=== PATIENT | female | born 1950 | race African-American/Black ===

== ENCOUNTER 2016-10-28 08:57 | Emergency (ER) | payer OTHER ==
[~2016-10-28] VITALS: Ht 165.1 cm; Wt 65.0 kg
[~2016-10-28 08:57] MED LIST: ALLO300T2 PO
[2016-10-28 10:57] VITALS: BP 121/69
== END 2016-10-28 11:17 | disposition home or self-care (01) ==
LOC: ER 11:10
DX: Z48.01 Encounter for change or removal of surgical wound dressing (principal); F41.9 Anxiety disorder, unspecified; M19.90 Unspecified osteoarthritis, unspecified site; I10 Essential (primary) hypertension; Z87.442 Personal history of urinary calculi; Z88.8 Allergy status to other drugs, medicaments and biological substances
CPT/HCPCS: 99282; X7700; Z7610

== ENCOUNTER 2016-11-26 13:51 | Emergency (ER) | payer OTHER ==
[~2016-11-26] VITALS: Ht 172.7 cm; Wt 68.0 kg
[2016-11-26] MEDS ORDERED: LIDOCAINE HCL 1% 20ML VIAL (Pyxis) INJ INFIL ONE (14:45)
[2016-11-26] MEDS ORDERED: ACETAMINOPHEN WITH CODEINE 300/30MG TABLET PO ONE (14:45)
[2016-11-26] MEDS ORDERED: CEFTRIAXONE SODIUM 1 G/VIAL IM ONE (14:45)
[2016-11-26 15:18] VITALS: BP 137/68
== END 2016-11-26 16:12 | disposition home or self-care (01) ==
LOC: ER 16:02
DX: S71.101A Unspecified open wound, right thigh, initial encounter (principal); L03.115 Cellulitis of right lower limb; I10 Essential (primary) hypertension; M19.90 Unspecified osteoarthritis, unspecified site; Z88.1 Allergy status to other antibiotic agents; W57.XXXA Bitten or stung by nonvenomous insect and other nonvenomous arthropods, initial encounter; Y93.89 Activity, other specified; Y92.89 Other specified places as the place of occurrence of the external cause; Y99.8 Other external cause status
CPT/HCPCS: 87070; 87077; 87186; 87205; 96372; 99284; J0696; J3490; X7700; Z7610; 99283

== ENCOUNTER 2017-03-31 10:58 | Emergency (ER) | payer MEDICARE, OTHER ==
[~2017-03-31] VITALS: Ht 162.6 cm; Wt 59.0 kg
[2017-03-31] MEDS ORDERED: KETOROLAC 30MG/ML VIAL IV STA (14:48)
[2017-03-31 15:08] LABS: BASOPHILS % 0.3 % (0.0-2.0); EOSINOPHILS % 0.5 % (0.0-5.0); HEMATOCRIT. 34.4 % (36.0-48.0); HEMOGLOBIN. 11.3 g/dL (12.0-16.0); LYMPHOCYTES % 29.9 % (20.0-50.0); MEAN CORPUSCULAR HEMOGLOBIN 28.1 pg (28.0-32.0); MEAN CORPUSCULAR VOLUME 85.5 fL (81.0-99.0); MEAN PLATELET VOLUME 9.5 fl (7.4-10.4); MONOCYTES % 7.3 % (2.0-8.0); PLATELET 171 x1000/uL (130-400); RED BLOOD CELL COUNT 4.02 mill/uL (4.2-5.4); RED CELL DISTRIBUTION WIDTH 15.6 % (11.6-14.6)
[2017-03-31 15:11] LABS: CHLORIDE 105 mEq/L (98-107)
[2017-03-31 15:14] LABS: CARBON DIOXIDE 28 mEq/L (21-32)
[2017-03-31 17:32] LABS: CLARITY URINE CLEAR (CLEAR); COLOR URINE YELLOW (YELLOW); GLUCOSE URINE TRACE (NEGATIVE); KETONES URINE NEGATIVE (NEGATIVE); LEUKOCYTE ESTERASE URINE 3+ (NEGATIVE); NITRITE URINE NEGATIVE (NEGATIVE); OCCULT BLOOD URINE NEGATIVE (NEGATIVE); PH URINE 7.5 (4.5-8.0); PROTEIN URINE NEGATIVE (NEGATIVE); UROBILINOGEN URINE 0.2 E.U./dL (0.2-1.0)
[2017-03-31 19:45] VITALS: BP 141/74
== END 2017-03-31 19:50 | disposition home or self-care (01) ==
LOC: ER 11:46
DX: N39.0 Urinary tract infection, site not specified (principal); N20.0 Calculus of kidney; M19.90 Unspecified osteoarthritis, unspecified site; I10 Essential (primary) hypertension; Z88.1 Allergy status to other antibiotic agents
CPT/HCPCS: 36415; 76770; 80053; 81001; 85025; 96374; 99285; J1885

== ENCOUNTER 2017-08-13 20:13 | Inpatient (IN) | payer MEDICARE, MEDICAID ==
[~2017-08-13] VITALS: Ht 170.2 cm; Wt 61.7 kg
[2017-08-13 21:01] LABS: BASOPHILS % 0.3 % (0.0-2.0); EOSINOPHILS % 0.2 % (0.0-5.0); HEMOGLOBIN. 12.2 g/dL (12.0-16.0); LYMPHOCYTES % 20.4 % (20.0-50.0); MEAN CORPUSCULAR HEMOGLOBIN 27.6 pg (28.0-32.0); MEAN CORPUSCULAR VOLUME 83.8 fL (81.0-99.0); MEAN PLATELET VOLUME 9.7 fl (7.4-10.4); MONOCYTES % 5.4 % (2.0-8.0); NEUTROPHILS % 73.7 % (40.0-76.0); PLATELET 161 x1000/uL (130-400); RED BLOOD CELL COUNT 4.42 mill/uL (4.2-5.4)
[2017-08-13 21:07] LABS: INR 1.1; PROTHROMBIN TIME 11.4 sec (9.4-11.6)
[2017-08-13 21:09] LABS: CHLORIDE 108 mEq/L (98-107)
[2017-08-13 21:13] LABS: CLARITY URINE CLEAR (CLEAR); COLOR URINE YELLOW (YELLOW); KETONES URINE NEGATIVE (NEGATIVE); LEUKOCYTE ESTERASE URINE 3+ (NEGATIVE); NITRITE URINE NEGATIVE (NEGATIVE); OCCULT BLOOD URINE NEGATIVE (NEGATIVE); PROTEIN URINE TRACE (NEGATIVE); SPECIFIC GRAVITY URINE 1.012 (1.005-1.030); UROBILINOGEN URINE 0.2 E.U./dL (0.2-1.0)
[2017-08-13] MEDS ORDERED: ONDANSETRON HCL 4MG/2ML INJ IV SCH (21:30)
[2017-08-13] MEDS ORDERED: SODIUM CHLORIDE 0.9% 1,000 ML IV SCH (21:30)
[2017-08-13] MEDS ORDERED: KETOROLAC 15MG/ML VIAL IV SCH (21:30)
[2017-08-13] MEDS ORDERED: CEFTRIAXONE 1 G PREMIX 50 ML IV SCH (22:30)
[2017-08-14] MEDS ORDERED: ONDANSETRON HCL 4MG/2ML INJ IV ONE
[2017-08-14] MEDS ORDERED: MORPHINE SULFATE 4 MG/ML CPJ (NOT FOR IM USE) IV ONE (01:15)
[2017-08-14] MEDS ORDERED: METOCLOPRAMIDE HCL 10MG/2ML VIAL IV ONE (01:30)
[2017-08-14] MEDS ORDERED: IOHEXOL-300 100 ML BOTTLE ONE (03:37)
[2017-08-14] MEDS ORDERED: HYDRALAZINE 20MG/ML VIAL IV SCH ×2 (05:21→12:00)
[2017-08-14 10:10] LABS: *AMPHETAMINES SCREEN URINE NEGATIVE (NEGATIVE); *BARBITURATES SCREEN URINE NEGATIVE (NEGATIVE)
[2017-08-14 10:15] LABS: *BENZODIAZEPINES SCREEN URINE NEGATIVE (NEGATIVE); *COCAINE SCREEN URINE PRESUMTIVE POSITIVE (NEGATIVE); CANNABINOID URINE SCREEN NEGATIVE (NEGATIVE); METHADONE URINE SCREEN NEGATIVE (NEGATIVE); OPIATES URINE SCREEN NEGATIVE (NEGATIVE); PHENCYCLIDINE URINE SCREEN NEGATIVE (NEGATIVE)
[2017-08-14] MEDS ORDERED: HYDRALAZINE 10 MG in SODIUM CHLORIDE 0.9% 49.5 ML IV NR (10:30)
[2017-08-14] MEDS ORDERED: CLONIDINE 0.2MG TABLET PO PRN (11:15)
[2017-08-14] MEDS ORDERED: HYDROCODONE/ACETAMINOPHEN 10/325MG TABLET PO PRN (11:15)
[2017-08-14] MEDS ORDERED: DIPHENHYDRAMINE 50MG/ML VIAL IV PRN (11:15)
[2017-08-14] MEDS ORDERED: ACETAMINOPHEN 325MG TABLET PO PRN (11:15)
[2017-08-14] MEDS ORDERED: LORAZEPAM 2MG/ML CPJ IV PRN (11:15)
[2017-08-14] MEDS: NIFEDIPINE XL 60MG TAB PO SCH (11:28)
[2017-08-14] MEDS: ONDANSETRON HCL 4MG/2ML INJ IV PRN ×2 (11:48→15:48)
[2017-08-14 12:00] VITALS: BP 208/99
[2017-08-14] MEDS ORDERED: FOLIC ACID 1 MG, THIAMINE HCL 100 MG in SODIUM CHLORIDE 0.9% 1,000 ML IV SCH (12:30)
[2017-08-14] MEDS: MORPHINE SULFATE 4 MG/ML CPJ (NOT FOR IM USE) IV PRN (12:44)
[2017-08-14] MEDS: LEVOFLOXACIN 500MG PREMIX 100 ML IV SCH (13:56)
[2017-08-14] MEDS: DEXT 5%/0.45% NACL KCL 20MEQ/L 1,000 ML IV SCH (13:58)
[2017-08-14 15:34] VITALS: BP 208/99
[2017-08-14 16:00] VITALS: BP 173/84
[2017-08-14] MEDS ORDERED: HYDRALAZINE 10 MG in SODIUM CHLORIDE 0.9% 49.5 ML IV SCH (18:00)
[2017-08-14] MEDS: HYDRALAZINE 10 MG in SODIUM CHLORIDE 0.9% 50 ML IV SCH (18:04)
[2017-08-14 20:00] VITALS: BP 183/94
[2017-08-15] VITALS: BP 135/81
[2017-08-15] MEDS: DEXT 5%/0.45% NACL KCL 20MEQ/L 1,000 ML IV SCH ×3 (03:19→20:34)
[2017-08-15] MEDS: HYDRALAZINE 10 MG in SODIUM CHLORIDE 0.9% 50 ML IV SCH ×2 (03:20→06:00)
[2017-08-15 04:00] VITALS: BP 95/40
[2017-08-15 08:00] VITALS: BP 90/38
[2017-08-15] MEDS: NIFEDIPINE XL 60MG TAB PO SCH (08:47)
[2017-08-15 12:00] VITALS: BP 95/43
[2017-08-15] MEDS: LEVOFLOXACIN 500MG PREMIX 100 ML IV SCH (14:43)
[2017-08-15 16:00] VITALS: BP 104/50
[2017-08-15] MEDS: MORPHINE SULFATE 4 MG/ML CPJ (NOT FOR IM USE) IV PRN ×2 (17:12→21:12)
[2017-08-15] MEDS ORDERED: CLONIDINE 0.1MG TABLET PO PRN (17:15)
[2017-08-15 20:00] VITALS: BP 107/51
[2017-08-16] VITALS: BP 123/57
[2017-08-16] MEDS: MORPHINE SULFATE 4 MG/ML CPJ (NOT FOR IM USE) IV PRN (02:41)
[2017-08-16 04:00] VITALS: BP_SYST 131; BP_SYST 139; BP_DIAS 57; BP_DIAS 61
[2017-08-16 08:00] VITALS: BP 131/51
[2017-08-16] MEDS: NIFEDIPINE XL 60MG TAB PO SCH (09:00)
[2017-08-16] MEDS ORDERED: DIATR MEGLU/DIATRIZOATE SOLN 120ML ONE (11:17)
[2017-08-16] MEDS ORDERED: DIATR MEGLU/DIATRIZOATE SOLN 30ML ONE (11:18)
[2017-08-16 12:00] VITALS: BP 149/59
[2017-08-16] MEDS: DEXT 5%/0.45% NACL KCL 20MEQ/L 1,000 ML IV SCH (13:09)
[2017-08-16 16:00] VITALS: BP 127/67
[2017-08-16] MEDS ORDERED: MORPHINE SULFATE 2 MG/ML CPJ (NOT FOR IM USE) IV PRN (17:30)
[2017-08-16 20:00] VITALS: BP 129/51
[2017-08-17 08:00] VITALS: BP 167/67
[2017-08-17] MEDS: NIFEDIPINE XL 60MG TAB PO SCH (09:27)
[2017-08-17 12:00] VITALS: BP 170/61
[2017-08-17 15:20] VITALS: BP 170/61
[2017-08-18] MEDS ORDERED: NIFE90TA2 PO (17:22)
== END 2017-08-17 16:25 | disposition home or self-care (01) | DRG 463 ==
LOC: ER 20:32 → 6EST 08-14 02:18 → ENRESERV 08-14 08:17
PROVIDERS: ADMIT Internal Medicine; ATTEND Internal Medicine
DX: N39.0 Urinary tract infection, site not specified (principal); N17.9 Acute kidney failure, unspecified; K74.60 Unspecified cirrhosis of liver; I10 Essential (primary) hypertension; F14.10 Cocaine abuse, uncomplicated; J45.909 Unspecified asthma, uncomplicated; M19.90 Unspecified osteoarthritis, unspecified site; R74.0 Nonspecific elevation of levels of transaminase and lactic acid dehydrogenase [LDH]; Z60.2 Problems related to living alone; E87.6 Hypokalemia; E80.6 Other disorders of bilirubin metabolism; Z98.891 History of uterine scar from previous surgery; Z87.442 Personal history of urinary calculi; Z79.899 Other long term (current) drug therapy; Z88.8 Allergy status to other drugs, medicaments and biological substances
CPT/HCPCS: 36415; 74177; 74270; 76700; 80305; 81001; 82962; 96361; 96365; 96366; 96375; 96376; 99285; G0482; J0360; J0696; J1885; J1956; J2060; J2270; J2405; J2765; J3411; J3490; J7030; Q9963; Q9967

== ENCOUNTER 2018-06-22 17:19 | Emergency (ER) | payer MEDICARE, MEDICAID ==
[~2018-06-22] VITALS: Ht 170.2 cm; Wt 82.0 kg
[~2018-06-22 17:19] MED LIST changes: -ALLO300T2 PO; +NIFE90TA2 PO
[2018-06-22] MEDS ORDERED: CYCLOBENZAPRINE 10MG TABLET PO ONE (21:00)
[2018-06-22 21:56] LABS: CHLORIDE 111 mEq/L (98-107)
[2018-06-22 22:35] VITALS: BP 185/101
== END 2018-06-22 23:04 | disposition home or self-care (01) ==
LOC: ER 17:33
DX: R25.2 Cramp and spasm (principal); M79.672 Pain in left foot; M79.671 Pain in right foot; M79.642 Pain in left hand; M79.641 Pain in right hand; F32.9 Major depressive disorder, single episode, unspecified; I10 Essential (primary) hypertension; F41.9 Anxiety disorder, unspecified; Z88.1 Allergy status to other antibiotic agents; Z79.899 Other long term (current) drug therapy
CPT/HCPCS: 36415; 80048; 99283

== ENCOUNTER 2019-04-08 20:26 | Emergency (ER) | payer MEDICARE, MEDICAID ==
[~2019-04-08] VITALS: Ht 162.6 cm; Wt 62.0 kg
[2019-04-08] MEDS ORDERED: HYDROCODONE/ACETAMINOPHEN 10/325MG TABLET PO ONE (23:15)
[2019-04-09] MEDS ORDERED: LORAZEPAM 1MG TABLET PO ONE (09:15)
[2019-04-09] MEDS ORDERED: IBUPROFEN 600MG TABLET PO ONE (09:15)
[2019-04-09 13:23] VITALS: BP 154/74
== END 2019-04-09 13:45 | disposition short-term general hospital (02) ==
LOC: ER 22:26 → CANBEDREQ 04-09 10:53 → ER 04-09 13:45
DX: M79.605 Pain in left leg (principal); Z87.81 Personal history of (healed) traumatic fracture; Z98.890 Other specified postprocedural states
CPT/HCPCS: 73552; 73562; 73590; 99285

== ENCOUNTER 2020-02-28 15:27 | Emergency (ER) | payer MEDICARE, MEDICAID ==
[~2020-02-28] VITALS: Ht 170.2 cm; Wt 59.0 kg
[2020-02-28] MEDS ORDERED: FAMOTIDINE 20MG/2ML VIAL IV STA (16:12)
[2020-02-28] MEDS ORDERED: ONDANSETRON HCL 4MG/2ML INJ IV STA (16:12)
[2020-02-28 16:25] LABS: BASOPHILS % 0.2 % (0.0-2.0); EOSINOPHILS % 0.2 % (0.0-5.0); HEMATOCRIT. 43.4 % (36.0-48.0); HEMOGLOBIN. 14.3 g/dL (12.0-16.0); LYMPHOCYTES % 20.3 % (20.0-50.0); MEAN CORPUSCULAR HEMOGLOBIN 27.4 pg (28.0-32.0); MEAN CORPUSCULAR VOLUME 83.1 fL (81.0-99.0); MEAN PLATELET VOLUME 10.5 fl (7.4-10.4); MONOCYTES % 8.5 % (2.0-8.0); NEUTROPHILS % 70.8 % (40.0-76.0); PLATELET 192 x1000/uL (130-400); RED BLOOD CELL COUNT 5.22 mill/uL (4.2-5.4); RED CELL DISTRIBUTION WIDTH 14.3 % (11.6-14.6)
[2020-02-28 16:31] LABS: CHLORIDE 99 mEq/L (98-107)
[2020-02-28 16:34] LABS: INR 1.1
[2020-02-28 16:35] LABS: ETHANOL BLOOD < 10 mg/dL
[2020-02-28] MEDS ORDERED: MAGNESIUM/ALUMINUM HYDROXIDE/SIMETHICONE 30ML UDC PO ONE (20:15)
[2020-02-28 21:18] LABS: CLARITY URINE TURBID (CLEAR); COLOR URINE YELLOW (YELLOW); KETONES URINE NEGATIVE (NEGATIVE); LEUKOCYTE ESTERASE URINE 3+ (NEGATIVE); NITRITE URINE NEGATIVE (NEGATIVE); OCCULT BLOOD URINE 2+ (NEGATIVE); PH URINE 6.5 (4.5-8.0); PROTEIN URINE 2+ (NEGATIVE)
[2020-02-28 21:30] LABS: *AMPHETAMINES SCREEN URINE NEGATIVE (NEGATIVE); *BARBITURATES SCREEN URINE NEGATIVE (NEGATIVE); *BENZODIAZEPINES SCREEN URINE NEGATIVE (NEGATIVE); *COCAINE SCREEN URINE PRESUMTIVE POSITIVE (NEGATIVE); CANNABINOID URINE SCREEN NEGATIVE (NEGATIVE); METHADONE URINE SCREEN NEGATIVE (NEGATIVE); OPIATES URINE SCREEN NEGATIVE (NEGATIVE); PHENCYCLIDINE URINE SCREEN NEGATIVE (NEGATIVE)
[2020-02-28] MEDS ORDERED: MORPHINE SULFATE 4 MG/ML CPJ (NOT FOR IM USE) IV NR (21:30)
[2020-02-28] MEDS ORDERED: LEVOFLOXACIN 250MG TABLET PO ONE (21:30)
[2020-02-28] MEDS ORDERED: AMOXICILLIN/POTASSIUM CLAVULANATE 875/125MG TAB PO ONE (21:30)
[2020-02-28 22:18] VITALS: BP 172/92
[2020-03-15] MEDS ORDERED: MELO-104 MT (14:53)
== END 2020-02-28 23:07 | disposition home or self-care (01) ==
LOC: ER 15:27
DX: N39.0 Urinary tract infection, site not specified (principal); N20.0 Calculus of kidney; E87.6 Hypokalemia; I12.9 Hypertensive chronic kidney disease with stage 1 through stage 4 chronic kidney disease, or unspecified chronic kidney disease; N18.9 Chronic kidney disease, unspecified; F32.9 Major depressive disorder, single episode, unspecified; M19.90 Unspecified osteoarthritis, unspecified site; F41.9 Anxiety disorder, unspecified; Z86.19 Personal history of other infectious and parasitic diseases; Z88.3 Allergy status to other anti-infective agents
CPT/HCPCS: 36415; 71045; 74018; 76705; 80053; 80305; 80320; 81003; 83690; 84484; 85025; 85610; 87077; 87086; 87186; 93005; 96374; 96375; 99285; J2405; J3490; G0480

== ENCOUNTER 2020-09-01 12:09 | Emergency (ER) | payer MEDICARE, MEDICAID ==
[~2020-09-01] VITALS: Ht 167.6 cm; Wt 50.0 kg
[~2020-09-01 12:09] MED LIST changes: +MELO-104 MT
[2020-09-01] MEDS ORDERED: ONDANSETRON 4MG ODT PO STA (12:24)
[2020-09-01] MEDS ORDERED: ACETAMINOPHEN 325MG TABLET PO STA (12:24)
[2020-09-01] MEDS ORDERED: MAGNESIUM/ALUMINUM HYDROXIDE/SIMETHICONE 30ML UDC PO STA (12:24)
[2020-09-01] MEDS ORDERED: FAMOTIDINE 20MG TABLET PO ONE (12:30)
[2020-09-01 13:12] LABS: BASOPHILS % 0.5 % (0.0-2.0); EOSINOPHILS % 1.3 % (0.0-5.0); HEMATOCRIT. 33.7 % (36.0-48.0); LYMPHOCYTES % 24.8 % (20.0-50.0); MEAN PLATELET VOLUME 10.7 fl (7.4-10.4); MONOCYTES % 9.6 % (2.0-8.0); NEUTROPHILS % 63.8 % (40.0-76.0); PLATELET 118 x1000/uL (130-400); RED BLOOD CELL COUNT 4.06 mill/uL (4.2-5.4); RED CELL DISTRIBUTION WIDTH 15.5 % (11.6-14.6)
[2020-09-01 13:18] LABS: CLARITY URINE CLEAR (CLEAR); COLOR URINE YELLOW (YELLOW); KETONES URINE NEGATIVE (NEGATIVE); LEUKOCYTE ESTERASE URINE 2+ (NEGATIVE); NITRITE URINE NEGATIVE (NEGATIVE); OCCULT BLOOD URINE 1+ (NEGATIVE); PROTEIN URINE NEGATIVE (NEGATIVE); SPECIFIC GRAVITY URINE 1.007 (1.005-1.030); UROBILINOGEN URINE 0.2 E.U./dL (0.2-1.0)
[2020-09-01 13:21] LABS: INR 1.1; PROTHROMBIN TIME 11.7 sec (9.6-11.0)
[2020-09-01 13:24] LABS: CHLORIDE 112 mEq/L (98-107)
[2020-09-01] MEDS ORDERED: CEFTRIAXONE 1 G PREMIX 50 ML IV ONE (13:45)
[2020-09-01] MEDS ORDERED: MORPHINE SULFATE 4 MG/ML CPJ (NOT FOR IM USE) IV ONE (14:00)
[2020-09-01] MEDS ORDERED: LABETALOL 5MG/ML SYR 20 MG/4 ML SYRINGE IV ONE (14:00)
[2020-09-01] MEDS ORDERED: IOHEXOL-300 100 ML BOTTLE ONE (15:16)
[2020-09-01 16:37] VITALS: BP 166/81
[2020-09-01] MEDS ORDERED: CEPH500T MT (17:13)
[2020-09-19] MEDS ORDERED: LOSA25TA3 PO (13:12)
[2020-09-19] MEDS ORDERED: ATOR10TA PO (13:12)
[2020-09-19] MEDS ORDERED: AMLO5TAB88 PO (13:12)
[2020-09-19] MEDS ORDERED: ASPI-1160 PO (13:12)
== END 2020-09-01 18:20 | disposition home or self-care (01) ==
LOC: ER 12:09
DX: N39.0 Urinary tract infection, site not specified (principal); I10 Essential (primary) hypertension
CPT/HCPCS: 36415; 74177; 80053; 81003; 83690; 84484; 85025; 85610; 93005; 96365; 96375; 99285; J0696; J2270; J3490; Q0162; Q9967